=== PATIENT | female | born 1975 | race Caucasian/White ===

== ENCOUNTER 2016-10-02 08:59 | Emergency (ER) | payer BC ==
[~2016-10-02] VITALS: Ht 160 cm; Wt 103.0 kg
[~2016-10-02 08:59] MED LIST: ASPI325T PO; DILT180C56 OR; FERR324T4 PO; PRED20 PO; PROMSYP39 PO
[2016-10-02 09:07] VITALS: BP 131/78; PULSE 84; RESP 18; TEMP 98.2; O2SAT 99
[2016-10-02] MEDS ORDERED: DILT180C56 PO (09:21)
[2016-10-02] MEDS ORDERED: ASPI325T PO (09:21)
[2016-10-02] MEDS ORDERED: PREN29TA PO (09:21)
[2016-10-02 09:25] LABS: MEAN CORPUSCULAR HGB CONC 29.5 % (32.0-36.0)
[2016-10-02 09:26] LABS: BLOOD, URINE TRACE (NEG); GLUCOSE,URINE NEG (NEG); KETONE, URINE NEG (NEG); NITRITE,URINE NEG (NEG)
[2016-10-02 09:27] LABS: METHOD OF COLLECTION CLEAN CATCH; URINE COLOR YELLOW (YELLW/STRAW)
--- NOTE | 2016-10-02 09:28 | PD ---
HPI Chief Complaint: Flank/Kidney Pain Time Seen by Provider: 09:13 Travel History International Travel<30 days: No Contact w/Intl Traveler<30days: No Traveled to known affect area: No History of Present Illness HPI Patient is a 41-year-old female presents for a week's worth of back pain particularly on the left side. Patient states that it is highly positional initially she was able to work through it.. She does have a history of sciatica but has not had any sciatic symptoms no saddle anesthesia and no difficulty urinating. She has no history of kidney stones. She became fairly alarmed this morning when he started radiating to her left anterior abdomen and started making her somewhat nauseous. This prompted to come into the emergency department and be seen. No fevers no diarrhea no emesis. No blood in the stool. No history of kidney stones or kidney problems. Denies vaginal bleeding vaginal discharge. States she is due for cycle next week. PFSH Past Medical History Hx Anticoagulant Therapy: Yes (81MG ASA) Atrial Fibrillation: Yes Cardiovascular Problems: Yes (AFIB) Diabetes: No Diminished Hearing: No Hiatal Hernia: Yes Tetanus Vaccination: Unknown ?: Not : 4 Para: 3 Miscarriage: 1 Past Surgical History Cholecystectomy: Yes Family History Family Myocardial Infarction: Yes (FATHER) Social History Alcohol Use: Yes (OCCASIONAL) Tobacco Use: No Substance Use: No Allergies-Medications (Allergen,Severity, Reaction): Coded Allergies: No Known Allergies (Verified , 10/02/16) Reported Meds & Prescriptions Reported Meds & Active Scripts Active Prednisone 20 Mg Tab 60 Mg PO DAILY 5 Days Ultram (Tramadol HCl) 50 Mg Tab 50 Mg PO Q8H PRN Reported Diltiazem CD 24 HR 180 Mg Caper 180 Mg PO DAILY Aspirin 325 Mg Tab 325 Mg PO DAILY Plus Iron 29-1 mg ( Vit-Iron Carbonyl) 1 Tab Tab 1 Tab PO DAILY Review of Systems Except as stated in HPI: all other systems reviewed are Neg Physical Exam Narrative GENERAL: Well-developed, overweight appears fairly uncomfortable. SKIN: Warm and dry. HEAD: Atraumatic. Normocephalic. EYES: Pupils equal and round. No scleral icterus. No injection or drainage. ENT: No nasal bleeding or discharge. Mucous membranes pink and moist. NECK: Trachea midline. No JVD. CARDIOVASCULAR: Regular rate and rhythm. No murmur appreciated. RESPIRATORY: No accessory muscle use. Clear to auscultation. Breath sounds equal bilaterally. GASTROINTESTINAL: Abdomen soft, non-tender, nondistended. Hepatic and splenic margins not palpable. No CVA tenderness bilaterally. Psoas and obturator signs negative. MUSCULOSKELETAL: No obvious deformities. No clubbing. No cyanosis. No edema. There is some tenderness at the SI joint but does not reproduce her pain completely. There is no midline spinal tenderness, there is no hip tenderness. No bruising seen. Straight leg raise is positive. NEUROLOGICAL: Awake and alert. No obvious cranial nerve deficits. Motor grossly within normal limits. Normal speech. PSYCHIATRIC: Appropriate mood and affect; insight and judgment normal. Data Data Last Documented VS Vital Signs Date Time Temp Pulse Resp B/P Pulse Ox O2 Delivery O2 Flow Rate FiO2 10/02/16 11:19 82 16 106/62 98 10/02/16 09:48 98.2 10/02/16 09:29 Room Air Orders Urinalysis - C+S If Indicated (10/02/16 09:06) Ed Urine Pregnancytest Poc (10/02/16 09:07) Complete Blood Count With Diff (10/02/16 09:24) Comprehensive Metabolic Panel (10/02/16 09:24) Lipase (10/02/16 09:24) Iv Access Insert/Monitor (10/02/16 09:24) Ecg Monitoring (10/02/16 09:24) Oximetry (10/02/16 09:24) Ondansetron Inj (Zofran Inj) (10/02/16 09:30) Sodium Chloride 0.9% Flush (Ns Flush) (10/02/16 09:30) Ketorolac Inj (Toradol Inj) (10/02/16 09:30) Ct Abd/Pel W Iv Contrast(Rout) (10/02/16 ) Morphine Inj (Morphine Inj) (10/02/16 10:15) Iohexol 350 Inj (Omnipaque 350 Inj) (10/02/16 10:41) Labs Laboratory Tests Test 10/02/16 10/02/16 09:15 09:30 Urine Collection Type CLEAN CATCH Urine Color YELLOW Urine Turbidity CLEAR Urine pH 6.0 Urine Specific [place] 1.019 Urine Protein NEG mg/dL Urine Glucose (UA) NEG mg/dL Urine Ketones NEG mg/dL Urine Occult Blood TRACE Urine Nitrite NEG Urine Bilirubin NEG Urine Leukocyte Esterase NEG Urine RBC 0-3 /hpf Urine WBC 0-2 /hpf Urine Squamous Epithelial 0-5 /hpf Cells Microscopic Urinalysis Comment CULT NOT INDICATED White Blood Count 5.8 TH/MM3 Red Blood Count 4.87 MIL/MM3 Hemoglobin 8.8 GM/DL Hematocrit 29.9 % Mean Corpuscular Volume 61.4 FL Mean Corpuscular Hemoglobin 18.1 PG Mean Corpuscular Hemoglobin 29.5 % Concent Red Cell Distribution Width 19.4 % Platelet Count 465 TH/MM3 Mean Platelet Volume 8.4 FL Neutrophils (%) (Auto) 61.6 % Lymphocytes (%) (Auto) 26.7 % Monocytes (%) (Auto) 7.7 % Eosinophils (%) (Auto) 1.9 % Basophils (%) (Auto) 2.1 % Neutrophils # (Auto) 3.7 TH/MM3 Lymphocytes # (Auto) 1.5 TH/MM3 Monocytes # (Auto) 0.4 TH/MM3 Eosinophils # (Auto) 0.1 TH/MM3 Basophils # (Auto) 0.1 TH/MM3 CBC Comment AUTO DIFF Differential Comment AUTO DIFF CONFIRMED Sodium Level 141 MEQ/L Potassium Level 4.1 MEQ/L Chloride Level 110 MEQ/L Carbon Dioxide Level 23.0 MEQ/L Anion Gap 8 MEQ/L Blood Urea Nitrogen 9 MG/DL Creatinine 0.69 MG/DL Estimat Glomerular Filtration 93 ML/MIN Rate Random Glucose 103 MG/DL Calcium Level 8.0 MG/DL Total Bilirubin 0.3 MG/DL Aspartate Amino Transf 15 U/L (AST/SGOT) Alanine Aminotransferase 16 U/L (ALT/SGPT) Alkaline Phosphatase 82 U/L Total Protein 7.6 GM/DL Albumin 3.5 GM/DL Lipase 125 U/L [facility] Medical Decision Making Medical Screen Exam Complete: Yes Emergency Medical Condition: Yes Differential Diagnosis , ectopic , sciatica, kidney stone, diverticulitis, diverticulosis, sacroiliitis. Narrative Course Patient was roomed in the emergency department, on physical exam my suspicion is high for musculoskeletal type pain. However the patient's states that she feels the pain has moved into her abdomen. Labs are drawn and sent and show the patient does have anemia which is slightly better than her previous. White blood cell count normal electrolytes within normal limits kidney and liver function normal. CAT scan is performed as part of complete workup shows no acute intra-abdominal abnormality. She is in his health finding of a variant cyst on the right. She was given Toradol without significant relief, morphine was given which did allow for significant relief of her pain. I discussed with her need for pelvic exam is part of completing her workup and she declines this time stating that she would rather follow up with her [employer]. My suspicion of ovarian torsion is quite low she has not had any vaginal bleeding or vaginal discharge. Ultrasound is not indicated at this time. Patient would like to go home discussed with her need follow-up with a primary care physician and return to ED criteria., Diagnosis Primary Impression: Flank pain Additional Impression: Anemia Qualified Code: D64.9 - Anemia, unspecified type Med/Other Pt SpecificInfo: Prescription(s) given Scripts Prednisone 20 Mg Tab60 Mg PO DAILY 5 Days Ref 0 Prov:Satya Davis MD 10/02/16 Tramadol (Ultram)50 Mg Tab50 Mg PO Q8H PRN (PAIN) #12 TAB Ref 0 Prov:Satya Davis MD 10/02/16 Disposition: 01 DISCHARGE HOME Condition: Stable Satya Davis MD Oct 02, 2016 09:28
[2016-10-02 09:29] VITALS: RESP 16; O2SAT 100
[2016-10-02] MEDS ORDERED: KETOROLAC TROMETHAMINE 30 MG/ML (IVP) VIAL IVP ONE (09:30)
[2016-10-02] MEDS ORDERED: SODIUM CHLORIDE 0.9% FLUSH 5 ML FLUSH IVF PRN (09:30)
[2016-10-02] MEDS ORDERED: ONDANSETRON HCL 4 MG/2 ML VIAL IVP ONE (09:30)
[2016-10-02 09:35] LABS: COMMENT (UR) CULT NOT INDICATED; CULTURE IF INDICATED CULT NOT INDICATED; RBC, URINE 0-3 /hpf (0-3); SQUAMOUS EPITHELIAL CELL URINE 0-5 /hpf (0-5); WBC, URINE 0-2 /hpf (0-5)
[2016-10-02 09:43] LABS: AUTOMATED NEUTROPHIL # 3.7 TH/MM3 (1.8-7.7); BASOPHIL # 0.1 TH/MM3 (0-0.2); BASOPHIL % 2.1 % (0.0-2.0); EOSINOPHIL # 0.1 TH/MM3 (0-0.4); EOSINOPHIL % 1.9 % (0.0-4.0); HEMATOCRIT 29.9 % (35.0-46.0); LYMPH % 26.7 % (9.0-44.0); LYMPHOCYTE # 1.5 TH/MM3 (1.0-4.8); MEAN CELL VOLUME 61.4 FL (80.0-100.0); MEAN CORPUSCULAR HEMOGLOBIN 18.1 PG (27.0-34.0); MONO % 7.7 % (0.0-8.0); NEUT % 61.6 % (16.0-70.0); PLATELET COUNT 465 TH/MM3 (150-450); RED BLOOD COUNT 4.87 MIL/MM3 (4.00-5.30); RED CELL DISTRIBUTION WIDTH 19.4 % (11.6-17.2); WHITE BLOOD COUNT 5.8 TH/MM3 (4.0-11.0)
[2016-10-02 09:45] LABS: HEMO FLAGS AUTO DIFF
[2016-10-02 09:48] VITALS: BP 131/78; PULSE 84; RESP 18; TEMP 98.2; O2SAT 99
[2016-10-02 09:55] LABS: ANION GAP 8 MEQ/L (5-15); BLOOD UREA NITROGEN 9 MG/DL (7-18); CHLORIDE 110 MEQ/L (98-107); POTASSIUM 4.1 MEQ/L (3.5-5.1); SODIUM (NA) 141 MEQ/L (136-145)
[2016-10-02 09:58] LABS: ALT (GPT) 16 U/L (10-53); GLOMERULAR FILTRATION RATE 93 ML/MIN (>89)
[2016-10-02 09:59] LABS: TOTAL BILIRUBIN ADULT 0.3 MG/DL (0.2-1.0)
[2016-10-02 10:00] LABS: ALKALINE PHOSPHATASE 82 U/L (45-117); AST (GOT) 15 U/L (15-37)
[2016-10-02 10:02] LABS: SCAN/DIFF AUTO DIFF CONFIRMED
[2016-10-02] MEDS ORDERED: MORPHINE SULFATE 8 MG/ML INJ IV PUSH ONE (10:15)
[2016-10-02] MEDS ORDERED: ULTR50TA5 PO (10:33)
[2016-10-02] MEDS ORDERED: FERR325T PO (10:34)
[2016-10-02] MEDS ORDERED: IOHEXOL 350 MG/ML 10 ML VIAL (for RAD DIAG) IV ONE (10:41)
--- NOTE | 2016-10-02 10:44 | RADHPO ---
EXAM DATE/TIME: 10/02/2016 10:14 [facility] COMPARISON: No previous studies available for comparison. INDICATIONS : Left low back and flank pain. IV CONTRAST: 85 cc Omnipaque 350 (iohexol) IV ORAL CONTRAST: No oral contrast ingested. RADIATION DOSE: 21.40 CTDIvol (mGy) MEDICAL HISTORY : Cardiovascular disease. SURGICAL HISTORY : Cholecystectomy. ENCOUNTER: Initial ACUITY: 4 - 6 days PAIN SCALE: 8/10 LOCATION: Left flank TECHNIQUE: Volumetric scanning of the abdomen and pelvis was performed. Using automated exposure control and ad justment of the mA and/or kV according to patient size, radiation dose was kept as low as reasonably achievable to obtain optimal diagnostic quality images. FINDINGS: LOWER LUNGS: The visualized lower lungs are clear. LIVER: Homogeneous density without lesion. There is no dilation of the biliary tree. No calcified gallston es. SPLEEN: Normal size without lesion. PANCREAS: Within normal limits. KIDNEYS: Normal in size and shape. There is no mass, stone or hydronephrosis. ADRENAL GLANDS: Within normal limits. VASCULAR: There is no aortic aneurysm. BOWEL/MESENTERY: There is a small hiatal hernia. The stomach, small bowel, and colon demonstrate no acute abnormality. There is no free intraperitoneal air or fluid. ABDOMINAL WALL: Within normal limits. RETROPERITONEUM: There is no lymphadenopathy. BLADDER: No wall thickening or mass. REPRODUCTIVE: The uterus and left adnexa are unremarkable. There is a simple appearing cyst in the right ovary shantell uring 2.4 x 2.2 cm. INGUINAL: There is no lymphadenopathy or hernia. MUSCULOSKELETAL: Within normal limits for patient age. CONCLUSION: 1. The kidneys are unremarkable in appearance with no renal calculi or obstruction. 2. Small simple appearing cysts in the right ovary measuring 2.4 x 2.2 cm. 3. Small hiatal hernia. 4. Unremarkable bowel gas pattern. Cali Hamm MD on October 02, 2016 at 10:36 Board Certified Radiologist. This report was verified electronically.
[2016-10-02] MEDS ORDERED: PRED20 PO (11:16)
[2016-10-02 11:19] VITALS: BP 106/62
== END 2016-10-02 11:52 | disposition home or self-care (01) ==
LOC: PHED 08:59
DX: R10.84 Generalized abdominal pain (principal); D64.9 Anemia, unspecified; I48.91 Unspecified atrial fibrillation; Z79.82 Long term (current) use of aspirin
CPT/HCPCS: 74177; 80053; 81001; 83690; 84703; 85025; 96374; 96375; 99284; J1885; J2270; J2405; Q9967

== ENCOUNTER 2017-11-16 11:10 | Emergency (ER) | payer BC ==
[~2017-11-16] VITALS: Ht 160 cm; Wt 109.7 kg
[~2017-11-16 11:10] MED LIST changes: +ASPI-183 PO; -ASPI325T PO; -DILT180C56 OR; +DILT180C56 PO; -FERR324T4 PO; +PREN29TA PO; -PROMSYP39 PO; +TRAM50 PO
[2017-11-16 11:13] VITALS: BP 134/82; PULSE 99; RESP 16; TEMP 99.1; O2SAT 99
[2017-11-16] MEDS ORDERED: DILT90TA PO (11:21)
[2017-11-16] MEDS ORDERED: DILT90CA PO (11:21)
[2017-11-16] MEDS ORDERED: ASPI-516 CHEW (11:21)
--- NOTE | 2017-11-16 12:32 | RADRPT ---
EXAM DATE/TIME: 11/16/2017 12:24 [facility] COMPARISON: No previous studies available for comparison. INDICATIONS : Cough. MEDICAL HISTORY : Afib SURGICAL HISTORY : None. ENCOUNTER: Initial ACUITY: 3 weeks PAIN SCORE: 0/10 LOCATION: Bilateral chest FINDINGS: A single view of the chest demonstrates the lungs to be symmetrically aerated without evidence of mas s, infiltrate or effusion. The cardiomediastinal contours are unremarkable. Osseous structures are intact. CONCLUSION: No acute disease. There is no evidence of pneumonia. Cali Hamm MD on November 16, 2017 at 12:30 Board Certified Radiologist. This report was verified electronically.
[2017-11-16] MEDS ORDERED: AZIT250T3 PO (13:10)
[2017-11-16] MEDS ORDERED: PRED20 PO (13:10)
[2017-11-16] MEDS ORDERED: BENZ100 PO (13:10)
--- NOTE | 2017-11-16 13:14 | PD ---
HPI Chief Complaint: Cold / Flu Symptoms Time Seen by Provider: 11:36 Travel History International Travel<30 days: No Contact w/Intl Traveler<30days: No Traveled to known affect area: No History of Present Illness HPI 42-year-old female that presents to the ED for evaluation of cold-like symptoms. Per patient she's had this for about 3 weeks. Per patient she was seen in urgent care and told she had a viral syndrome. She is given amoxicillin to use only if symptoms worsen. She has not started.. She states that she's been having sore throat and congestion and cough for the past 3 weeks. She denies any urinary or bowel movement issues. No chest pain or shortness of breath. Per patient the cough is productive. Gets worse at night. Per patient she has chills and sweats and generalized weakness. No sick contacts. No history of asthma. Per patient she has a history of A. fib and feels like she is having flares on occasion. She states diltiazem as well as aspirin. States that his throat hurts the worst. Denies any other medical issues. Has not taken anything for this other than ykti-cwj-drytayh remedies. PFSH Past Medical History Hx Anticoagulant Therapy: Yes (BABY ASA DAILY) Atrial Fibrillation: Yes Cardiovascular Problems: Yes (A. FIB) Diabetes: No Diminished Hearing: No Hiatal Hernia: Yes ?: Not LMP: NOW : 4 Para: 3 Miscarriage: 1 Past Surgical History Cholecystectomy: Yes Family History Family Myocardial Infarction: Yes (FATHER) Social History Alcohol Use: Yes (OCCASIONAL) Tobacco Use: No Substance Use: No Allergies-Medications (Allergen,Severity, Reaction): Coded Allergies: No Known Allergies (Verified Adverse Reaction, Unknown, 11/16/17) Reported Meds & Prescriptions Reported Meds & Active Scripts Active Azithromycin 250 Mg Tab 250 Mg PO DIRECTED Take 2 tabs (500 mg) on day 1 then 1 tab daily x 4 days. Tessalon Perles (Benzonatate) 100 Mg Cap 100 Mg PO TID PRN Prednisone 20 Mg Tab 20 Mg PO BID 5 Days Reported Diltiazem (Diltiazem HCl) 90 Mg Tab Unknown Dose PO QID Aspirin 81 Mg Chew 81 Mg CHEW DAILY Review of Systems Except as stated in HPI: all other systems reviewed are Neg Physical Exam Narrative GENERAL: Well-nourished, well-developed patient in no apparent distress. SKIN: Warm and dry. HEAD: Atraumatic. Normocephalic. EYES: Pupils equal and round reactive to light and accommodation. No scleral icterus. No injection or drainage. ENT: No nasal bleeding or discharge. Mucous membranes pink and moist. TMs are clear with no sign of infection or perforation. No mastoid tenderness. Ear canals are intact bilaterally. No lymphadenopathy. Nostril mucosa is red and moist with clear mucus noted. No sinus tenderness to palpation noted. Tonsils are not enlarged or swollen. No ulvua Deviation. Tongue is midline. NECK: Trachea midline. No JVD. No meningeal signs noted CARDIOVASCULAR: Regular rate and rhythm. RESPIRATORY: No accessory muscle use. Clear to auscultation. Breath sounds equal bilaterally. GASTROINTESTINAL: Abdomen soft, non-tender, nondistended. Hepatic and splenic margins not palpable. MUSCULOSKELETAL: Extremities without clubbing, cyanosis, or edema. No obvious deformities. NEUROLOGICAL: Awake and alert. No obvious cranial nerve deficits. Motor grossly within normal limits. Five out of 5 muscle strength in the arms and legs. Normal speech. PSYCHIATRIC: Appropriate mood and affect; insight and judgment normal. Data Data Last Documented VS Vital Signs Date Time Temp Pulse Resp B/P (MAP) Pulse Ox O2 Delivery O2 Flow Rate FiO2 11/16/17 11:13 99.1 99 16 134/82 (99) 99 Orders Orders Electrocardiogram (11/16/17 11:41) Chest, Single Ap (11/16/17 11:41) Ed Discharge Order (11/16/17 13:11) [facility] Medical Decision Making Medical Screen Exam Complete: Yes Emergency Medical Condition: Yes Medical Record Reviewed: Yes Differential Diagnosis Bronchitis versus sinusitis versus pharyngitis versus tonsillitis Narrative Course 42-year-old female that presents to the ED for evaluation of cold like symptoms. Patient was properly examined and was found to have signs and symptoms consistent appears to be pharyngitis with bronchitis. Tonsils appear to be intact. This time I recommend trial of azithromycin, tessalon pearls and Prednisone. Told Follow with PCP. See ED Worsening Symptoms. Given Note for Work. Diagnosis Primary Impression: Bronchitis Additional Impression: Pharyngitis, acute Qualified Codes: J02.9 - Acute pharyngitis, unspecified Patient Instructions: General Instructions Departure Forms: Tests/Procedures, Work Release Enter return to work date: Nov 19, 2017 Additional Instructions: Motrin and Tylenol for pain and fever. You can use [id number] antihistamine as well as well as Mucinex as needed for runny nose and congestion. Cough drops for cough as needed. Drink plenty of fluids. Follow-up with PCP. See ED for worsening symptoms. Med/Other Pt SpecificInfo: Prescription(s) given Scripts Azithromycin (Azithromycin) 250 Mg Tab 250 MG PO DIRECTED for Infection, #6 TAB 0 Refills Take 2 tabs (500 mg) on day 1 then 1 tab daily x 4 days. Prov: Rebel Conrad MD 11/16/17 Benzonatate (Tessalon Perles) 100 Mg Cap 100 MG PO TID Y for COUGH, #20 CAP 0 Refills Prov: Rebel Conrad MD 11/16/17 Prednisone (Prednisone) 20 Mg Tab 20 MG PO BID for 5 Days, #10 TAB 0 Refills Prov: Rebel Conrad MD 11/16/17 Disposition: 01 DISCHARGE HOME Condition: Stable Deshawn Gaspar Nov 16, 2017 13:14
--- NOTE | 2017-11-17 | EKG ---
Date Performed: 11/16/2017 Time Performed: 11:58:52 PTAGE: 42 years EKG: Sinus rhythm NONSPECIFIC T-WAVE ABNORMALITY BORDERLINE ECG PREVIOUS TRACING : 05/24/2016 08.33 DOCTOR: Rohan Hardy Interpretating Date/Time 11/16/2017 23:57:03
== END 2017-11-16 13:37 | disposition home or self-care (01) ==
LOC: PHEFT 11:10
DX: J40 Bronchitis, not specified as acute or chronic (principal); J02.9 Acute pharyngitis, unspecified; I48.91 Unspecified atrial fibrillation; R94.31 Abnormal electrocardiogram [ECG] [EKG]
CPT/HCPCS: 71045; 93005; 99284